=== PATIENT | male | born 1955 ===

== ENCOUNTER 2022-04-13 15:10 | Inpatient (IN) ==
[2022-04-13] MEDS ORDERED: Iopamidol - 370 500 ML MLS IVP ONE (15:33)
[2022-04-13] MEDS ORDERED: 0.9 % Sodium Chloride 1,000 ML IVC ONE ×2 (15:33→16:39)
[2022-04-13 15:53] LABS: VBG Ionized Calcium 1.05 mmol/L (1.15-1.35)
[2022-04-13 16:24] LABS: Hematocrit 26.7 % (37.5-50.1); Hemoglobin 8.2 g/dL (12.9-16.9); Lymphocytes # 1.2 K/mcL (0.6-4.6); Mean Corpuscular HGB Conc 30.7 g/dL (31.6-35.5); Mean Corpuscular Hemoglobin 27.5 pg (28.0-33.3); Mean Corpuscular Volume 89.6 fL (83.0-100.0); Mean Platelet Volume 10.6 fL (9.4-12.4); Nucleated Red Blood Cells 4.3 /100 WBC (0); Platelet Count 103 K/mcL (140-400); Red Blood Count 2.98 M/mcL (4.19-5.50); White Blood Count 14.7 K/mcL (4.3-11.1)
[2022-04-13 16:31] LABS: INR 1.9; Prothrombin Time 20.7 Seconds (9.4-12.1)
[2022-04-13 16:36] LABS: Alanine Aminotransferase 70 Units/L (7-52); Albumin/Globulin Ratio 0.9 (1.1-2.2); Alkaline Phosphatase 966 Units/L (34-104); Aspartate Amino Transferase 186 Units/L (13-39); BUN/Creatinine Ratio 36 (6-26); Bilirubin,Total 2.5 mg/dL (0.3-1.0); Blood Urea Nitrogen 27 mg/dL (8-23); Calcium 8.9 mg/dL (8.6-10.3); Carbon Dioxide 24 mEq/L (23-29); Chloride 95 mEq/L (98-107); Creatine Kinase 312 Units/L (30-223); Globulin 3.4 g/dL (2.4-3.5); Glucose 150 mg/dL (70-105); Lipase 823 Units/L (11-82); Magnesium 1.6 mg/dL (1.6-2.6); Osmolality,Calculated 278 (280-300); Phosphorous 2.8 mg/dL (2.7-4.5); Potassium 4.3 mEq/L (3.5-5.1); Sodium 130 mEq/L (136-145); Total Protein 6.4 g/dL (6.4-8.9); Troponin I 0.03 ng/mL (< 0.04)
[2022-04-13 17:05] LABS: Eosinophils # 0.3 K/mcL (0.0-0.6); Monocytes # 1.2 K/mcL (0.0-1.3); Neutrophils # 12.1 K/mcL (1.6-8.9); Platelet Estimate Slight Decrease (Normal)
[2022-04-13 17:06] LABS: Anisocytosis 1+ (Not Present)
[2022-04-13] MEDS ORDERED: Ondansetron 4 MG/2 ML VIAL IVP PRN (19:00)
[2022-04-13] MEDS ORDERED: Naloxone 0.4 MG/ML INJ IVP PRN ×2 (19:00)
[2022-04-13] MEDS ORDERED: Dextrose Gel 15 GM/37.5 ML TUBE PO PRN ×2 (19:34)
[2022-04-13] MEDS ORDERED: *HR* Dextrose 50 % in Water (Syg) 50 ML SYRINGE IVP PRN (19:34)
[2022-04-13] MEDS ORDERED: D5% in Water 1,000 ML IVC PRN (19:34)
[2022-04-13 20:50] LABS: Bacteria,Urine Few per hpf (None-Few); Bilirubin,Urine Negative (Negative); Blood,Urine Trace (Negative); Clarity,Urine Clear (Clear); Color,Urine Yellow (Yellow); Glucose,Urine (UA) Normal (Normal); Ketones,Urine 10 mg/dL (Negative); Leukocyte Esterase,Urine Negative (Negative); Mucus,Urine Few per lpf (None-Few); Nitrite,Urine Negative (Negative); Protein,Urine 50 mg/dL (Neg-Trace); Specific Gravity,Urine > 1.030 (1.010-1.025); Squamous Epithelial Cell,Urine Few per hpf (None-Few); WBC,Urine 0-3 per hpf (0-3)
[2022-04-13] MEDS ORDERED: Ringers Solution, Lactated 1,000 ML IVC ONE (21:35)
[2022-04-13] MEDS: Ketorolac 30 MG/ML VIAL IM PRN (21:39)
[2022-04-13] MEDS: *HR* Heparin 5,000 UNIT/ML VIAL SQ SCH (21:39)
[2022-04-13] MEDS ORDERED: Ipratropium/Albuterol Neb 3 ML IH PRN (22:00)
[2022-04-13] MEDS: Budesonide/Formoterol 160/4.5 1 PUFF INH IH SCH (22:15)
[2022-04-13] MEDS: Ringers Solution, Lactated 1,000 ML IVC SCH (22:16)
[2022-04-13] MEDS: Nicotine 14 MG PATCH.TD24 TD SCH (22:56)
[2022-04-13] MEDS ORDERED: Vancomycin 1,750 MG/517.5 ML IV.SOLN IVPB ONE (23:00)
[2022-04-14] MEDS: Cefepime HCl 2,000 MG in 0.9 % Sodium Chloride 10 ML IVP SCH ×2 (00:21→09:35)
[2022-04-14] MEDS: MetroNIDAZOLE 500 MG/100 ML 500 MG/100 ML BAG IVPB SCH ×2 (00:22→09:36)
[2022-04-14 02:55] LABS: Red Blood Count 2.19 M/mcL (4.19-5.50)
[2022-04-14 02:57] LABS: Hematocrit 19.4 % (37.5-50.1); Hemoglobin 6.2 g/dL (12.9-16.9); Immature Platelets 4.7 % (1.1-6.1); Mean Corpuscular Hemoglobin 28.3 pg (28.0-33.3); Mean Corpuscular Volume 88.6 fL (83.0-100.0); Mean Platelet Volume 9.6 fL (9.4-12.4); Nucleated Red Blood Cells 2.7 /100 WBC (0); Red Cell Distribution Width 18.4 % (11.5-14.5); White Blood Count 9.5 K/mcL (4.3-11.1)
[2022-04-14 03:14] LABS: % Iron Saturation 74 % (20-55); Iron 115 mcg/dL (65-175); Transferrin 111 mg/dL (203-362)
[2022-04-14 03:16] LABS: Alanine Aminotransferase 54 Units/L (7-52); Albumin 2.4 g/dL (3.5-5.7); Albumin/Globulin Ratio 0.9 (1.1-2.2); Alkaline Phosphatase 769 Units/L (34-104); Amylase 267 Units/L (29-103); Aspartate Amino Transferase 146 Units/L (13-39); BUN/Creatinine Ratio 39 (6-26); Bilirubin,Direct 1.6 mg/dL (0.0-0.2); Bilirubin,Indirect 0.7 mg/dL (0.0-1.0); Bilirubin,Total 2.3 mg/dL (0.3-1.0); Blood Urea Nitrogen 27 mg/dL (8-23); Carbon Dioxide 23 mEq/L (23-29); Chloride 101 mEq/L (98-107); Globulin 2.7 g/dL (2.4-3.5); Glucose 133 mg/dL (70-105); Osmolality,Calculated 281 (280-300); Platelet Count 62 K/mcL (140-400); Sodium 132 mEq/L (136-145); Total Protein 5.1 g/dL (6.4-8.9); Triglycerides 183 mg/dL (< 150)
[2022-04-14 03:56] LABS: Anisocytosis 1+ (Not Present); Hypochromasia Present (Not Present); Monocytes # 0.4 K/mcL (0.0-1.3); Neutrophils # 8.2 K/mcL (1.6-8.9); Platelet Estimate Decreased (Normal)
[2022-04-14] MEDS: *HR* Heparin 5,000 UNIT/ML VIAL SQ SCH (05:19)
[2022-04-14] MEDS: Ringers Solution, Lactated 1,000 ML IVC SCH ×3 (05:20→11:31)
[2022-04-14] MEDS ORDERED: 0.9 % Sodium Chloride 250 ML ONE (05:23)
[2022-04-14 05:52] LABS: Adenovirus Not Detected (Not Detect); Bordetella Pertussis Not Detected (Not Detect); Chlamydophila pneumoniae Not Detected (Not Detect); Coronavirus 229E Not Detected (Not Detect); Coronavirus HKU1 Not Detected (Not Detect); Coronavirus NL63 Not Detected (Not Detect); Coronavirus OC43 Not Detected (Not Detect); Human Metapneumovirus Not Detected (Not Detect); Human Rhinovirus/Enterovirus Not Detected (Not Detect); Influenza A Subtype 2009 H1 Not Detected (Not Detect); Influenza B Not Detected (Not Detect); Mycoplasma pneumoniae Not Detected (Not Detect); Parainfluenza Virus 1 Not Detected (Not Detect); Parainfluenza Virus 2 Not Detected (Not Detect); Parainfluenza Virus 3 Not Detected (Not Detect); Parainfluenza Virus 4 Not Detected (Not Detect); Respiratory Syncytial Virus Not Detected (Not Detect); SARS-CoV-2 Not Detected (Not Detect)
[2022-04-14] MEDS ORDERED: Pantoprazole 40 MG VIAL IVP SCH (06:00)
[2022-04-14] MEDS ORDERED: Venlafaxine XR (24 HR) 75 MG CAP.ER.24H PO SCH (09:00)
[2022-04-14 09:34] LABS: Prothrombin Time 22.3 Seconds (9.4-12.1)
[2022-04-14] MEDS: Nicotine 14 MG PATCH.TD24 TD SCH (09:37)
[2022-04-14] MEDS: Ketorolac 30 MG/ML VIAL IM PRN (09:44)
[2022-04-14] MEDS ORDERED: Vancomycin 1,250 MG/262.5 ML IV.SOLN IVPB SCH (10:00)
[2022-04-14] MEDS ORDERED: Tiotropium 10 INH DOSE IH SCH (10:00)
[2022-04-14] MEDS: Budesonide/Formoterol 160/4.5 1 PUFF INH IH SCH (10:35)
[2022-04-14 11:26] LABS: Hepatitis C Virus Antibody Nonreactive (Nonreactive)
[2022-04-14 11:27] LABS: Hepatitis A Antibody IgM Nonreactive (Nonreactive); Hepatitis B Core IgM Nonreactive (Nonreactive)
[2022-04-14 12:05] LABS: Hematocrit 23.3 % (37.5-50.1); Hemoglobin 7.6 g/dL (12.9-16.9)
[2022-04-14 12:18] LABS: Hepatitis B Surface Antigen Nonreactive (Nonreactive)
[2022-04-14 12:32] VITALS: BP 102/68; PULSE 115; TEMP 97.8; O2SAT 95
== END 2022-04-14 14:35 | disposition hospice, inpatient (51) | DRG 871 ==
LOC: EMEROOARM 15:10 → 2NENU 15:10 → SUATTDRO 19:05 → 2NENU 20:01
PROVIDERS: ADMIT Hospitalist; ATTEND Internal Medicine